=== PATIENT | female | born 1960 | race Caucasian/White ===

== ENCOUNTER 2020-07-20 08:28 | Day surgery (SDC) | payer BC, OTHER ==
[2020-07-20] VITALS (8 sets, daily range): BP systolic 101–120; BP diastolic 65–77
[~2020-07-20] VITALS: Ht 152.4 cm; Wt 80.6 kg
[2020-07-20] MEDS ORDERED: INSU100V41 SQ (09:42)
[2020-07-20] MEDS ORDERED: GABA100C PO (09:42)
[2020-07-20] MEDS ORDERED: METO100T14 PO (09:42)
[2020-07-20] MEDS ORDERED: AMLO2.5T2 PO (09:42)
[2020-07-20] MEDS ORDERED: LIRA0.6P2 SUBCUT (09:42)
[2020-07-20] MEDS ORDERED: midazolam 2 mg/2 ml injection ONE ×2 (10:55→11:28)
[2020-07-20] MEDS ORDERED: fentaNYL/PF 50MCG/1 ML 2ML syringe ONE ×2 (10:55→11:28)
[2020-07-20] MEDS ORDERED: LIDOcaine 1%/PF 5ML 10 MG/ML VIAL ONE (10:55)
[2020-07-20 12:48] LABS: GLUCOSE,CSF 102 MG/DL (40-75); TOTAL PROTEIN,CSF 51 MG/DL (15-45)
[2020-07-20 13:10] LABS: APPEARANCE,CSF CLEAR; CSF RBC 0 /CU MM (0); CSF SUPERNATANT COLOR COLORLESS; CSF VOLUME 20 ML; CSF WBC CT 3 /CU MM (0-5); TUBE# COUNTED 3
== END 2020-07-20 15:00 | disposition home or self-care (01) ==
LOC: SSTAY O 08:28
PROVIDERS: ATTEND Radiology Vascular & Interventional Radiology
DX: H49.00 Third [oculomotor] nerve palsy, unspecified eye (principal); H47.10 Unspecified papilledema; H54.7 Unspecified visual loss; E11.9 Type 2 diabetes mellitus without complications; I10 Essential (primary) hypertension
CPT/HCPCS: 62328; 77003; 82164; 82945; 82948; 84157; 87015; 87070; 87899; 89051; J2250; J3010; 99152; 99153